=== PATIENT | male | born 1970 | race Caucasian/White ===

== ENCOUNTER → 2016-07-23 | Outpatient (CLI) | payer BC, MEDICARE | DX: M25.511 Pain in right shoulder (principal) | CPT/HCPCS: 73030 ==

== ENCOUNTER 2016-08-02 16:48 | Emergency (ER) | payer BC, MEDICARE ==
[2016-08-02 18:24] LABS: HEMOGLOBIN 17.5 gm/dl (14.0-17.5); RED BLOOD COUNT 5.79 M/UL (4.20-5.50); WHITE BLOOD COUNT 7.7 K/UL (4.5-11.0)
== END 2016-08-02 22:50 | disposition home or self-care (01) ==
LOC: ER1 16:48
PROVIDERS: Emergency Medicine
DX: J11.1 Influenza due to unidentified influenza virus with other respiratory manifestations (principal); I13.0 Hypertensive heart and chronic kidney disease with heart failure and stage 1 through stage 4 chronic kidney disease, or unspecified chronic kidney disease; N18.9 Chronic kidney disease, unspecified; I50.9 Heart failure, unspecified; E11.22 Type 2 diabetes mellitus with diabetic chronic kidney disease; E87.5 Hyperkalemia; Z99.2 Dependence on renal dialysis; Z90.49 Acquired absence of other specified parts of digestive tract; Z79.82 Long term (current) use of aspirin; Z79.84 Long term (current) use of oral hypoglycemic drugs; Z79.899 Other long term (current) drug therapy
CPT/HCPCS: 36415; 71020; 80053; 84484; 85025; 87040; 87081; 87880; 93005; 94640; 94664; 99283; J7030

== ENCOUNTER 2020-08-28 11:25 | Observation (INO) | payer MEDICARE, OTHER ==
[~2020-08-28] VITALS: Ht 172.7 cm; Wt 100.7 kg
[~2020-08-28 11:25] MED LIST: CYANOCOBAL1000 MCG/1 INJ; LOPRESSOR 25 MG25 MG PO; NITROSTAT 0.40.4 MG SL; NORCO 5-325 TA1 EACH PO; NORVASC5 MG PO; OMEPRAZOLE20 MG PO; PHOSLO 667 MG667 MG PO
[2020-08-28 12:09] LABS: HEMOGLOBIN 13.6 gm/dl (14.0-17.5); RED BLOOD COUNT 4.3 M/UL (4.20-5.50)
[2020-08-28 12:12] LABS: WHITE BLOOD COUNT 6.3 K/UL (4.5-11.0)
[2020-08-28] MEDS ORDERED: BRILINTA90 MG PO ×2 (15:29→16:04)
[2020-08-28] MEDS ORDERED: AMLODIPINE BESY10 MG PO (15:59)
[2020-08-28] MEDS ORDERED: LOSARTAN POTAS100 MG PO (16:00)
[2020-08-28] MEDS ORDERED: HYDRALAZINE HCL50 MG PO (16:00)
[2020-08-28] MEDS ORDERED: HYDROCODON-ACE1 EAC2 PO (16:01)
[2020-08-28] MEDS ORDERED: NITROGLYCERIN0.4 MG SL (16:05)
--- NOTE | 2020-08-28 20:14 | NUR ---
PATIENT IS CURRENTLY ON A DIFFERENT FLOOR FOR DIALYSIS. WENT DOWN BEFORE SHIFT CHANGE. CANNOT ASSESS AT THIS TIME. WILL ASSESS UPON ARRIVAL BACK TO FLOOR.
--- NOTE | 2020-08-28 23:54 | NUR ---
PATIENT ARRIVED FROM DIALYSIS WITH NURSE AT 2125, THE DIALYSIS NURSE'S VITALS BEFORE COMING TO THE FLOOR WAS 147/72 HR 74 O2 96 TEMP 97.6 RR20 PATIENT WAS HOOKED UP TO OUR MONITORS AND THE VITALS I GOT ON ARRIVAL BACK TO FLOOR WAS TEMP 97.8 BP 153/75 (96) HR 85 RR 17 02 92 PATIENT WAS ASSESSED AT THIS TIME. PATIENT STATED HE WAS IN PAIN, CALLED THE DOCTOR TO OBTAIN PAIN MEDICAITON BECAUSE HE DID NOT HAVE ANY PRN OR SCHEDULED WILL REASSESS PAIN
[2020-08-29 00:25] LABS: HEMOGLOBIN 12.8 gm/dl (14.0-17.5); RED BLOOD COUNT 4.08 M/UL (4.20-5.50); WHITE BLOOD COUNT 5.9 K/UL (4.5-11.0)
--- NOTE | 2020-08-29 04:55 | NUR ---
PATIENTS WILL PUSH THE SUSPEND ALARMS BUTTON ON THE MONITOR, SHE WAS ENCOURAGED NOT TO DO SO AND EXPLAINED THE IMPORTANCE OF NOT SUSPENDING ALARM ON THE MONITOR.
[2020-08-29] MEDS ORDERED: ELIQUIS5 MG PO (16:02)
[2020-08-29] MEDS ORDERED: ASPIRIN EC81 MG PO (17:12)
[2020-08-29] MEDS ORDERED: LIPITOR40 MG PO (17:36)
== END 2020-08-29 18:30 | disposition home or self-care (01) ==
LOC: ER1 11:25 → PROG CARE 13:32 → CDU 13:32 → PROG CARE 15:29
PROVIDERS: Family Medicine; Physician Assistant Medical; ADMIT Internal Medicine
DX: J96.01 Acute respiratory failure with hypoxia (principal); I25.10 Atherosclerotic heart disease of native coronary artery without angina pectoris; I82.622 Acute embolism and thrombosis of deep veins of left upper extremity; I13.11 Hypertensive heart and chronic kidney disease without heart failure, with stage 5 chronic kidney disease, or end stage renal disease; N18.6 End stage renal disease; E11.9 Type 2 diabetes mellitus without complications; E78.5 Hyperlipidemia, unspecified; E53.0 Riboflavin deficiency; Z20.822 Contact with and (suspected) exposure to COVID-19; K21.9 Gastro-esophageal reflux disease without esophagitis; E66.9 Obesity, unspecified; I42.8 Other cardiomyopathies; Z99.2 Dependence on renal dialysis; Z95.1 Presence of aortocoronary bypass graft; Z83.3 Family history of diabetes mellitus; Z82.49 Family history of ischemic heart disease and other diseases of the circulatory system; Z88.8 Allergy status to other drugs, medicaments and biological substances; Z79.899 Other long term (current) drug therapy
CPT/HCPCS: 96365; 0240U; 36415; 36600; 71045; 80048; 80053; 82550; 82553; 82803; 83605; 83735; 83874; 83880; 84484; 85025; 85027; 85610; 90935; 93005; 93931; 93971; 94760; 96372; 96375; 96376; 99285; G0257; G0378; J1644; J2543; Q9967

== ENCOUNTER 2020-09-02 12:18 | Emergency (ER) | payer MEDICARE, OTHER ==
[~2020-09-02 12:18] MED LIST changes: +AMLODIPINE BESY10 MG PO; +ASPIRIN EC81 MG PO; +BRILINTA90 MG PO; +ELIQUIS5 MG PO; +HYDRALAZINE HCL50 MG PO; +HYDROCODON-ACE1 EAC2 PO; +LIPITOR40 MG PO; +LOSARTAN POTAS100 MG PO; +NITROGLYCERIN0.4 MG SL
[2020-09-02 15:11] LABS: RED BLOOD COUNT 4.17 M/UL (4.20-5.50); WHITE BLOOD COUNT 4.7 K/UL (4.5-11.0)
[2020-09-02] MEDS ORDERED: VENTOLIN HFA 66.7 GM INH (18:01)
== END 2020-09-02 18:11 | disposition home or self-care (01) ==
LOC: ER1 12:18
PROVIDERS: Emergency Medicine
DX: R06.02 Shortness of breath (principal); I12.0 Hypertensive chronic kidney disease with stage 5 chronic kidney disease or end stage renal disease; N18.6 End stage renal disease; E11.22 Type 2 diabetes mellitus with diabetic chronic kidney disease; Z88.8 Allergy status to other drugs, medicaments and biological substances
CPT/HCPCS: 71045; 80053; 82550; 82553; 83874; 83880; 84484; 85025; 93005; 99285

== ENCOUNTER 2020-10-25 15:07 | Emergency (ER) | payer MEDICARE, OTHER ==
[~2020-10-25 15:07] MED LIST changes: +VENTOLIN HFA 66.7 GM INH
[2020-10-25 16:20] LABS: HEMOGLOBIN 11.5 gm/dl (14.0-17.5); RED BLOOD COUNT 3.76 M/UL (4.20-5.50); WHITE BLOOD COUNT 4.3 K/UL (4.5-11.0)
[2020-10-25 17:34] LABS: BUN/CREATININE RATIO 4 (0-10)
== END 2020-10-25 18:50 | disposition home or self-care (01) ==
LOC: ER1 15:07
PROVIDERS: Physician Assistant
DX: I13.2 Hypertensive heart and chronic kidney disease with heart failure and with stage 5 chronic kidney disease, or end stage renal disease (principal); I50.1 Left ventricular failure, unspecified; N18.6 End stage renal disease; E11.22 Type 2 diabetes mellitus with diabetic chronic kidney disease; E78.5 Hyperlipidemia, unspecified; Z90.49 Acquired absence of other specified parts of digestive tract
CPT/HCPCS: 71045; 80053; 82550; 82553; 83874; 83880; 84484; 85025; 99285

== ENCOUNTER → 2021-06-20 | Outpatient (CLI) | payer MEDICARE, OTHER | LOC: EXRD 08:00 | DX: I82.622 Acute embolism and thrombosis of deep veins of left upper extremity (principal) | CPT/HCPCS: 93971 ==

== ENCOUNTER → 2021-09-26 | Outpatient (CLI) | payer MEDICARE, OTHER | LOC: HEART 5 07:43 | DX: R07.9 Chest pain, unspecified (principal); I50.9 Heart failure, unspecified; I25.10 Atherosclerotic heart disease of native coronary artery without angina pectoris; I42.0 Dilated cardiomyopathy; I08.3 Combined rheumatic disorders of mitral, aortic and tricuspid valves; I27.20 Pulmonary hypertension, unspecified | CPT/HCPCS: 78452; 93306; A9502; J2785 ==

== ENCOUNTER 2021-10-13 09:45 | Observation (INO) | payer MEDICARE, OTHER ==
[~2021-10-13] VITALS: Ht 172.7 cm; Wt 98.4 kg
[2021-10-13] MEDS ORDERED: ISOSORBIDE MONO30 MG PO (19:27)
[2021-10-13] MEDS ORDERED: PHOSLO 667 MG667 MG PO (19:28)
[2021-10-13] MEDS ORDERED: LOPRESSOR100 MG PO (19:34)
[2021-10-14 07:37] LABS: RED BLOOD COUNT 4.22 M/UL (4.20-5.50); WHITE BLOOD COUNT 4.9 K/UL (4.5-11.0)
--- NOTE | 2021-10-14 09:18 | NUR ---
LATE ENTRY; 10/14/21724 PT HAS NO POST CATH ADMISSION ORDERS. NOTIFIED DR HARDING. ORDERS FOR CBC, CMP PLACED AND PT PLACED ON HIS LIST. 10/14/[address] HARDING OF PTS CRITICAL POTASSIUM LEVEL. ORDERS TO CONSULT NEPHROLOGY AND LET THEM KNOW. 10/14/[address] LOPEZ OF PTS K LEVEL. ORDERS TO REPEAT TO ENSURE ACCURATE. REPEAT WAS 6.3 NOTIFIED AGAIN. ORDERS TO DC HOME AND FOR PT TO GO STRAIGHT TO DIAYLSIS CLINIC IN [place]. CARDIOLOGY PA NOTIFIED OF DR. ARCHER REQUEST TO DC QUICKLY.
[2021-10-14] MEDS ORDERED: ISOSORBIDE MONO60 MG PO (09:45)
[2021-10-14] MEDS ORDERED: LOPRESSOR 25 MG25 MG PO (09:45)
== END 2021-10-14 10:05 | disposition home or self-care (01) ==
LOC: CATH 09:45 → PROG CARE 19:33
PROVIDERS: Internal Medicine Interventional Cardiology; Internal Medicine Nephrology; ADMIT Internal Medicine Interventional Cardiology
DX: T82.855A Stenosis of coronary artery stent, initial encounter (principal); I25.799 Atherosclerosis of other coronary artery bypass graft(s) with unspecified angina pectoris; I25.84 Coronary atherosclerosis due to calcified coronary lesion; E11.22 Type 2 diabetes mellitus with diabetic chronic kidney disease; I13.2 Hypertensive heart and chronic kidney disease with heart failure and with stage 5 chronic kidney disease, or end stage renal disease; I50.22 Chronic systolic (congestive) heart failure; N18.6 End stage renal disease; E87.5 Hyperkalemia; I25.2 Old myocardial infarction; E11.649 Type 2 diabetes mellitus with hypoglycemia without coma; E78.5 Hyperlipidemia, unspecified; E66.9 Obesity, unspecified; Z68.33 Body mass index [BMI] 33.0-33.9, adult; Z88.8 Allergy status to other drugs, medicaments and biological substances; Z79.82 Long term (current) use of aspirin; Z82.49 Family history of ischemic heart disease and other diseases of the circulatory system; Z95.5 Presence of coronary angioplasty implant and graft; Y71.2 Prosthetic and other implants, materials and accessory cardiovascular devices associated with adverse incidents; Y83.8 Other surgical procedures as the cause of abnormal reaction of the patient, or of later complication, without mention of misadventure at the time of the procedure
CPT/HCPCS: 36415; 80048; 82962; 85025; 90935; 93571; 99152; 99153; C1769; C1887; C1894; G0378; J0153; J1644; J2250; J3010; J7030; Q9965